=== PATIENT | male | born 1995 | race Caucasian/White ===

== ENCOUNTER 2016-12-27 17:53 | Emergency (ER) | payer OTHER ==
[~2016-12-27] VITALS: Ht 172.7 cm; Wt 93.2 kg
[2016-12-27 18:05] VITALS: TEMP 97.7
[2016-12-27] MEDS ORDERED: OXY IR5 MG PO (19:53)
[2016-12-27 21:00] VITALS: BP 128/71; PULSE 87
== END 2016-12-27 21:00 | disposition home or self-care (01) ==
LOC: COL.ER 17:53
DX: T22.242A Burn of second degree of left axilla, initial encounter (principal); Z23 Encounter for immunization; X17.XXXA Contact with hot engines, machinery and tools, initial encounter; Y92.69 Other specified industrial and construction area as the place of occurrence of the external cause
CPT/HCPCS: J3010